=== PATIENT | female | born 1980 ===

== ENCOUNTER 2018-07-06 12:22 | Inpatient (IN) ==
[2018-07-06] MEDS ORDERED: MORPHINE 4 MG/1 ML VIAL IV STA (15:40)
[2018-07-06] MEDS ORDERED: ONDANSETRON 4 MG/2 ML VIAL IV STA (15:40)
[2018-07-06] MEDS ORDERED: MORPHINE 4 MG/1 ML VIAL ONE (15:54)
[2018-07-06] MEDS ORDERED: ONDANSETRON 4 MG/2 ML VIAL ONE (15:54)
[2018-07-06] MEDS ORDERED: PANTOPRAZOLE 40 MG VIAL IV STA (16:59)
[2018-07-06] MEDS ORDERED: ALUMINUM/MAGNES/SIMETH MAX STR 30 ML UDCUP PO ONE (17:00)
[2018-07-06] MEDS ORDERED: PANTOPRAZOLE 40 MG VIAL IV ONE (17:05)
[2018-07-06] MEDS ORDERED: ACETAMINOPHEN 325 MG TABLET PO PRN (18:38)
[2018-07-06] MEDS ORDERED: ALBUTEROL/IPRATROPIUM 3 ML NEB RESP TX PRN (18:38)
[2018-07-06] MEDS ORDERED: DEXTROSE 50% 25 GM/50 ML VIAL IV PRN (18:38)
[2018-07-06] MEDS ORDERED: GLUCAGON 1 MG VIAL IM PRN (18:38)
[2018-07-06] MEDS ORDERED: ONDANSETRON 4 MG/2 ML VIAL IV PRN (18:38)
[2018-07-06] MEDS ORDERED: ALBUTEROL 2.5 MG/3 ML NEB RESP TX PRN (18:38)
[2018-07-06] MEDS: LACTATED RINGERS 1,000 ML IV SCH (20:01)
[2018-07-06] MEDS: INSULIN LISPRO 100 UNIT/ML SUBCUT SCH ×2 (20:08→23:52)
[2018-07-06] MEDS: MORPHINE 4 MG/1 ML VIAL IV PRN (21:34)
[2018-07-07] MEDS: MORPHINE 4 MG/1 ML VIAL IV PRN ×5 (01:31→21:22)
[2018-07-07] MEDS: LACTATED RINGERS 1,000 ML IV SCH ×4 (02:41→20:36)
[2018-07-07 04:07] LABS: Apearance,Urine Slightly Hazy (Clear); Bacteria,Urine Occasional /HPF (Few); Bilirubin,Urine Negative (Negative); Blood, Urine Negative (Negative); Glucose,Urine (UA) 50 mg/dL (Negative); Ketones,Urine Negative (Negative); Mucus,Urine Occasional /LPF (Occasional); Nitrite,Urine Negative (Negative); Protein,Urine 30 MG/DL; Squamous Epithelial Cell,Urine Occasional /HPF (0-10); Urine Color Yellow (Yellow); Urine Specific Gravity 1.025 (1.001-1.035); WBC,Urine 3 /HPF (0-6)
[2018-07-07] MEDS: INSULIN LISPRO 100 UNIT/ML SUBCUT SCH ×3 (05:51→19:02)
[2018-07-07] MEDS: LEVOTHYROXINE 75 MCG TABLET PO SCH (05:52)
[2018-07-07 06:50] LABS: Basophils % 0.4 % (0.0-0.8); Eosinophils # 0.6 10*3/uL (0.0-0.87); Eosinophils % 6.2 % (0.00-10.9); Hematocrit 34.7 VOL% (35.7-47.0); Hemoglobin 11.2 GM/DL (12.0-16.0); Immature Granulocytes % 0.3 %; Immature Granulocytes Absolute 0.03 #; Lymphocytes # 3.7 10*3/uL (1.4-4.0); Lymphocytes % 41.2 % (21.3-54.2); Mean Corpuscular HGB Conc 32.3 GM/DL (32-36); Mean Corpuscular Hemoglobin 29 PG (27-34); Mean Corpuscular Volume 89.4 FL (87-102); Mean Platelet Volume 9.3 FL (9.6-12.0); Monocytes # 0.6 10*3/uL (0.11-0.8); Monocytes % 6.8 % (1.7-12.7); Neutrophils # 4.1 10*3/uL (1.4-7.4); Neutrophils % 45.1 % (38.7-73.9); Platelet Count 379 T/CUMM (130-400); Red Blood Count 3.88 MC/CUMM (3.8-5.5); Red Cell Distribution Width 16.8 % (9.3-17.3); White Blood Count 9.1 T/CUMM (4-12)
[2018-07-07 07:13] LABS: Alanine Aminotransferase 9 U/L (13-56); Albumin 2.7 G/DL (3.4-5.0); Alkaline Phosphatase 101 U/L (45-117); Aspartate Amino Transferase 15 U/L (0-37); Bilirubin,Total < 0.39 MG/DL (0.2-1.0); Blood Urea Nitrogen 10 MG/DL (7-18); Calcium 7.7 MG/DL (8.5-10.1); Glucose 148 MG/DL (74-106); Potassium 3.1 MMOL/L (3.5-5.1); Sodium 143 MMOL/L (136-145); Total Protein 6.5 G/DL (6.4-8.3)
[2018-07-07] MEDS: PANTOPRAZOLE 40 MG VIAL IV SCH (08:15)
[2018-07-07] MEDS: ENOXAPARIN 40 MG/0.4 ML SYRINGE SUBCUT SCH (12:40)
[2018-07-07] MEDS ORDERED: BISACODYL 5 MG TABLET PO ONE (16:20)
[2018-07-07] MEDS: POTASSIUM CHLORIDE 20 MEQ TABLET PO PRN ×2 (20:34→21:22)
[2018-07-08] MEDS: INSULIN LISPRO 100 UNIT/ML SUBCUT SCH ×4 (00:12→17:05)
[2018-07-08] MEDS: ALUMINUM/MAGNES/SIMETH MAX STR 30 ML UDCUP PO PRN ×2 (00:13→19:00)
[2018-07-08] MEDS: POTASSIUM CHLORIDE 20 MEQ TABLET PO PRN (00:13)
[2018-07-08] MEDS: MORPHINE 4 MG/1 ML VIAL IV PRN ×5 (01:31→21:09)
[2018-07-08] MEDS: LACTATED RINGERS 1,000 ML IV SCH ×2 (02:59→18:43)
[2018-07-08 06:04] LABS: Calcium 8.1 MG/DL (8.5-10.1); Osmolality,Calculated 274.5 MOS/KG (273-304); Potassium 3.3 MMOL/L (3.5-5.1)
[2018-07-08] MEDS: LEVOTHYROXINE 75 MCG TABLET PO SCH (06:05)
[2018-07-08] MEDS ORDERED: MAGNESIUM SULF RIDER 4 GM in PREMIX 1 EACH IV PRN (08:09)
[2018-07-08] MEDS ORDERED: MAGNESIUM SULF RIDER 2 GM in PREMIX 1 EACH IV PRN (08:09)
[2018-07-08] MEDS ORDERED: LIDOCAINE 100 MG/5 ML SYRINGE ONE (09:00)
[2018-07-08] MEDS ORDERED: PROPOFOL 200 MG/20 ML VIAL IV ONE (09:00)
[2018-07-08] MEDS: PANTOPRAZOLE 40 MG VIAL IV SCH (09:13)
[2018-07-08] MEDS: ENOXAPARIN 40 MG/0.4 ML SYRINGE SUBCUT SCH (11:23)
[2018-07-09] MEDS: INSULIN LISPRO 100 UNIT/ML SUBCUT SCH ×3 (00:34→12:36)
[2018-07-09] MEDS: MORPHINE 4 MG/1 ML VIAL IV PRN ×2 (00:47→08:12)
[2018-07-09] MEDS: LACTATED RINGERS 1,000 ML IV SCH (02:32)
[2018-07-09 07:08] LABS: Calcium 8.3 MG/DL (8.5-10.1); Osmolality,Calculated 275.7 MOS/KG (273-304); Potassium 3.3 MMOL/L (3.5-5.1)
[2018-07-09] MEDS: LEVOTHYROXINE 75 MCG TABLET PO SCH (07:18)
[2018-07-09 08:06] VITALS: BP 123/82
[2018-07-09] MEDS: POTASSIUM CHLORIDE 20 MEQ TABLET PO PRN ×3 (08:14→13:15)
[2018-07-09] MEDS: PANTOPRAZOLE 40 MG VIAL IV SCH (08:16)
[2018-07-09] MEDS: ENOXAPARIN 40 MG/0.4 ML SYRINGE SUBCUT SCH (11:11)
== END 2018-07-09 14:50 | disposition home or self-care (01) | DRG 392 ==
LOC: N.EDINP 12:22 → N.ED 12:22 → N.EDINP 18:09 → N.3E 18:33
PROVIDERS: ADMIT Surgery; ATTEND Surgery